=== PATIENT | male | born 1930 | race Caucasian/White ===

== ENCOUNTER 2017-05-01 04:45 | Inpatient (IN) ==
--- NOTE | 2017-04-30 08:52 | EKG Report ---
Test Performed on : 04/30/2017 08:26:39 AM Test Reason : pat Blood Pressure : / mmHG Vent. Rate : 040 BPM Atrial Rate : 040 BPM P-R Int : 202 ms QRS Dur : 108 ms QT Int : 488 ms P-R-T Axes : 039 -28 049 degrees QTc Int : 397 ms Marked sinus bradycardia. Abnormal ECG When compared with ECG of 11-JAN-2010 09:56, No significant change was found Confirmed by Wilder Bartlett DO ([id number]) on 05/03/2017 5:10:24 PM
[2017-04-30 09:44] LABS: HEMATOCRIT 38.5 % (42.0-52.0); HEMOGLOBIN 12.7 g/dL (14.0-18.0); MCH 29.3 PG (27-31); MCV 88.7 FL (81-99); MPV 9.9 FL (7.4-10.4); RBC 4.34 XMIL (4.7-6.1)
[2017-04-30 10:16] LABS: AGAP 10; BUN 14 mg/dL (8-22); CALCIUM 8.9 mg/dL (8.8-10.2); CHLORIDE 105 mmol/L (98-107); COSMO 283; POTASSIUM 4.3 mmol/L (3.5-5.1); SODIUM 142 mmol/L (136-145); TCO2 27 mmol/L (25-35)
[2017-05-01] MEDS ORDERED: PEPCID ONE (07:22)
[2017-05-01] MEDS ORDERED: INVANZ 1 GM/NS 1 GM/50 ML IVPB ONE (07:23)
[2017-05-01] MEDS ORDERED: LR 1,000 ML ONE (07:23)
[2017-05-01] MEDS ORDERED: FENTANYL ONE (07:56)
[2017-05-01] MEDS ORDERED: ENTEREG ONE (07:57)
[2017-05-01] MEDS ORDERED: AMIDATE ONE (07:57)
[2017-05-01] MEDS ORDERED: STERILE WATER INJ. ONE (09:31)
[2017-05-01] MEDS ORDERED: XYLOCAINE-MPF 2% ONE (09:31)
[2017-05-01] MEDS ORDERED: ZOFRAN ONE ×2 (09:31→11:42)
[2017-05-01] MEDS ORDERED: QUELICIN (DOSE) ONE (09:31)
[2017-05-01] MEDS ORDERED: OFIRMEV 1000 MG/ISOTONIC SOLN 1,000 MG/100 ML BOTTLE ONE (09:31)
[2017-05-01] MEDS ORDERED: NORCURON ONE (09:31)
[2017-05-01 10:22] LABS: URINE MICRO REVIEW NEEDED? NO; URINE SOURCE CATH
[2017-05-01 10:30] LABS: BILIRUBIN URINE NEGATIVE (NEGATIVE); BLOOD URINE SMALL (NEGATIVE); COLOR YELLOW; GLUCOSE URINE NEGATIVE (NEGATIVE); LEUKOCYTES URINE NEGATIVE (NEGATIVE); NITRITE URINE NEGATIVE (NEGATIVE); PROTEIN URINE NEGATIVE (NEGATIVE); SP GRAVITY URINE 1.016; TURBIDITY URINE CLEAR (CLEAR); UROBILINOGEN URINE NORMAL (NORMAL)
[2017-05-01 10:32] LABS: UR EPITHELIAL CELLS <10 /HPF (<10); URINE BACTERIA NEGATIVE /HPF; URINE RBC <10 /HPF (<10); URINE WBC <10 /HPF (<10)
--- NOTE | 2017-05-01 11:11 | OPERATIVE NOTE ---
PROCEDURE DATE: 05/01/2017 NAME OF THE PROCEDURE: Sigmoid colon resection. SURGEON: Russ Oconnell MD. MUFFLE OPERATOR: Ila Mar. PREOPERATIVE DIAGNOSIS: Mid sigmoid colon cancer. POSTOPERATIVE DIAGNOSIS: Mid sigmoid colon cancer. DESCRIPTION OF PROCEDURE: Satisfactory general endotracheal anesthesia was achieved. The patient was placed in Dharmesh stirrups. The abdomen was prepped and draped in a sterile fashion. An incision was made from just above the umbilicus down to the pubis. We carried our incision through the subcutaneous tissue through the midline fascia, entering the abdominal cavity to the extent of the skin incision. Brief exploration revealed a mass lesion in the mid sigmoid. It had been marked or tattooed. The sigmoid was somewhat redundant. We then incised the white line of Toldt on the left to free up the peritoneal attachments to the lateral pelvic wall. We then placed our Bookwalter retractor with the appropriate retracting arms and placed the patient in Trendelenburg. This kept the small bowel out of the way. After incising the peritoneum on both sides we chose a place in the proximal sigmoid, cleaned it off and then divided with the RORY blue cartridge 60 mm long. We then scored the peritoneum all the way down to the proximal rectum. We then used the LigaSure to divide the mesentery down to the sigmoid vessels. Here, we clamped and divided them with Eleanor clamps, suture ligated with 0 silk suture ligature. We then continued dissection of the mesentery down to our chosen distal point in the distal sigmoid or proximal rectum. We laid the specimen up on the pelvic sidewall anteriorly and this exposed the most distal sigmoid or proximal rectum posteriorly. We then used 3-0 silks in a Lembert fashion to approximate the proximal stapled off colon to the most distal segment. After placing the posterior layer of seromuscular stitches I then amputated the specimen. We also cut off the staple line proximally and had the open end of the rectum [id number] with the open end of the proximal sigmoid or distal descending colon. We then used a 3-0 Polysorb running locking stitch on the inner layer, changed it to a Evelio stitch anteriorly and then the finally 3-0 silks in a Lembert fashion anteriorly. This completed a 2 layered anastomosis. We changed gloves at this point and rid ourselves of the contaminated instruments. We irrigated out the pelvis. We then removed our retractors, proceeded to close the peritoneum with 2-0 chromic. We closed the fascia with the running #2 Prolene. We irrigated out the subcutaneous tissue then closed the skin with esther. A sterile dressing was applied. He tolerated it well. Sent to the recovery room in satisfactory condition. cc: MD Alfa Fuchs MD Alan Walker, MD
[2017-05-01] MEDS ORDERED: ROBINUL ONE (11:17)
[2017-05-01] MEDS ORDERED: D5 NS 1,000 ML ONE (11:43)
[2017-05-01] MEDS ORDERED: DEMEROL ONE (11:53)
[2017-05-01] MEDS ORDERED: BUPRENEX ONE (11:56)
[2017-05-01] MEDS ORDERED: BUPRENEX IV PRN (12:34)
[2017-05-01] MEDS: D5 LR 1,000 ML IV SCH (13:28)
[2017-05-01] MEDS: ZOFRAN IV PRN (13:34)
[2017-05-01] MEDS: OFIRMEV 1000 MG/ISOTONIC SOLN 1,000 MG/100 ML BOTTLE IV SCH ×2 (16:19→21:30)
[2017-05-01] MEDS ORDERED: BLISTEX MEDICATED BERRY LIP BALM TOP PRN (17:20)
[2017-05-01] MEDS: PERIDEX MT SCH (21:30)
[2017-05-01] MEDS: LOVENOX SUBQ SCH (21:30)
[2017-05-02] MEDS: D5 LR 1,000 ML IV SCH ×4 (00:59→15:45)
[2017-05-02] MEDS: OFIRMEV 1000 MG/ISOTONIC SOLN 1,000 MG/100 ML BOTTLE IV SCH ×4 (03:58→21:16)
[2017-05-02 06:29] LABS: HEMATOCRIT 34.9 % (42.0-52.0); HEMOGLOBIN 11.3 g/dL (14.0-18.0); MCH 28.8 PG (27-31); MCHC 32.4 g/dL (33-37); RBC 3.92 XMIL (4.7-6.1)
[2017-05-02 07:53] LABS: AGAP 7; BUN 15 mg/dL (8-22); CALCIUM 7.9 mg/dL (8.8-10.2); CHLORIDE 103 mmol/L (98-107); COSMO 278; POTASSIUM 4.4 mmol/L (3.5-5.1); SODIUM 138 mmol/L (136-145); TCO2 28 mmol/L (25-35)
[2017-05-02] MEDS: ENTEREG PO SCH ×2 (09:10→21:16)
[2017-05-02] MEDS: PRILOSEC PO SCH (09:10)
[2017-05-02] MEDS: PERIDEX MT SCH ×2 (09:10→21:16)
[2017-05-02] MEDS: UROXATRAL PO SCH (09:10)
[2017-05-02] MEDS: LOVENOX SUBQ SCH (21:16)
[2017-05-03] MEDS: ZOFRAN IV PRN ×3 (03:10→20:45)
[2017-05-03] MEDS: OFIRMEV 1000 MG/ISOTONIC SOLN 1,000 MG/100 ML BOTTLE IV SCH ×4 (03:10→20:45)
[2017-05-03] MEDS: D5 LR 1,000 ML IV SCH ×3 (04:50→11:28)
[2017-05-03] MEDS: PERIDEX MT SCH ×2 (09:21→20:46)
[2017-05-03] MEDS: ENTEREG PO SCH ×2 (09:22→20:45)
[2017-05-03] MEDS: UROXATRAL PO SCH (09:22)
[2017-05-03] MEDS: TENORMIN PO SCH ×2 (09:22→09:24)
[2017-05-03] MEDS: PRILOSEC PO SCH (09:22)
[2017-05-03] MEDS ORDERED: D5 LR 1,000 ML IV SCH (12:56)
[2017-05-03] MEDS: LOVENOX SUBQ SCH (20:45)
[2017-05-04] MEDS: OFIRMEV 1000 MG/ISOTONIC SOLN 1,000 MG/100 ML BOTTLE IV SCH ×6 (03:37→22:40)
[2017-05-04] MEDS: PERIDEX MT SCH ×2 (09:17→22:41)
[2017-05-04] MEDS: UROXATRAL PO SCH (09:17)
[2017-05-04] MEDS: PRILOSEC PO SCH (09:17)
[2017-05-04] MEDS: TENORMIN PO SCH (09:17)
[2017-05-04] MEDS: ENTEREG PO SCH ×2 (09:17→22:41)
[2017-05-04] MEDS ORDERED: ULTRAM PO PRN (09:41)
[2017-05-04] MEDS: LOVENOX SUBQ SCH (22:41)
[2017-05-05] MEDS: OFIRMEV 1000 MG/ISOTONIC SOLN 1,000 MG/100 ML BOTTLE IV SCH (04:38)
--- NOTE | 2017-05-05 11:25 | PROGRESS NOTE ---
DATE: 05/05/2017 SUBJECTIVE: He is doing well. No real pain. He has become more mobile. He is quite debilitated and he needs quite a lot of assistance ambulating, but he is able to make it to the bathroom. He is having flatus and tolerating a full liquid diet. OBJECTIVE: No fevers. No tachycardia. Blood pressure 145/79, O2 saturation 93% on room air. Abdomen is soft, appropriately tender. Incision is healing well. I do not see any lower extremity edema. Cardiovascular: Normal rate and rhythm. LABORATORY DATA: Labs reviewed and nothing new today. ASSESSMENT AND PLAN: An 87-year-old male status post sigmoid colectomy for cancer. He is doing well. He has had a return of bowel function. We will Hep-Lock his fluids today. Advance his diet to soft. Continue with physical therapy and make plans for further disposition. I think he will benefit from rehab. He is in assisted living and he has got some family, but I think he is having a hard time getting in and out of bed and rehab may insure that he does not have an adverse event at home. We will continue to follow along. cc: MD Russ Franco MD
[2017-05-05] MEDS: TENORMIN PO SCH (12:00)
[2017-05-05] MEDS: PERIDEX MT SCH ×2 (12:01→20:26)
[2017-05-05] MEDS: PRILOSEC PO SCH (12:01)
[2017-05-05] MEDS: UROXATRAL PO SCH (12:01)
[2017-05-05] MEDS: LOVENOX SUBQ SCH (20:26)
[2017-05-06] MEDS: PRILOSEC PO SCH (09:16)
[2017-05-06] MEDS: UROXATRAL PO SCH (09:16)
[2017-05-06] MEDS: TENORMIN PO SCH (09:16)
[2017-05-06] MEDS: PERIDEX MT SCH ×3 (09:16→21:11)
--- NOTE | 2017-05-06 14:06 | PROGRESS NOTE ---
DATE: 05/06/2017 SUBJECTIVE: Feels well. He is having bowel function, tolerating a diet, still quite weak but he is moving around better. He made pretty good strides yesterday. OBJECTIVE: Vital signs: No fevers. Pulse has been 50-60, blood pressure 160/80, oxygen saturation 97% on room air. General: He is alert. Incisions clean, dry and intact. Abdomen: Soft, appropriately tender. Nondistended. ASSESSMENT/PLAN: An 87-year-old male status post sigmoid colectomy. He is doing overall well surgically, is quite debilitated and weak. I think that is his main issue today. I normalized him today to get a grasp on what is going to require going home and will see, he may ultimately need rehab or at least home physical therapy but will make the decision after his progress today, will plan for disposition tomorrow. cc: MD Russ Franco MD
[2017-05-06] MEDS: LOVENOX SUBQ SCH (21:10)
[2017-05-07 07:21] VITALS: BP 144/76
--- NOTE | 2017-05-17 07:29 | DISCHARGE SUMMARY ---
ADMISSION DATE: 05/01/2017 DISCHARGE DATE: 05/07/2017 PRIMARY DISCHARGE DIAGNOSIS: Adenocarcinoma of the sigmoid colon. PRIMARY PROCEDURE: Sigmoid colectomy. HISTORY: This is an 87-year-old sent to me with a recently discovered cancer in the mid sigmoid by Dr. Robbins on colonoscopy. He was prepped as an outpatient, admitted on 05/01/2017, and underwent the sigmoid colectomy on 05/01/2017. Postoperatively, he did generally well. We decreased his IV rate to 70 on the first postoperative day. We removed his Sosa on the second postoperative day, and started him on clear liquids. We advanced his diet subsequent to that. By 05/07/2017, postop day 6, he was tolerating solid food, his bowels had moved, his wound was fine, and it was felt he could be discharged home. He will return to the office in 1 week. His pathology showed no positive nodes. cc: MD Alfa Fuchs MD
== END 2017-05-07 09:02 | disposition home or self-care (01) ==
LOC: SURHOLD 04:45 → 4N 11:39
PROVIDERS: ADMIT Surgery; ATTEND Surgery

== ENCOUNTER 2018-09-23 09:09 | Inpatient (IN) ==
[2018-09-23] MEDS ORDERED: ZOFRAN IV PRN (10:55)
[2018-09-23] MEDS ORDERED: NS 1,000 ML IV SCH (11:00)
--- NOTE | 2018-09-23 12:00 | HISTORY AND PHYSICAL ---
PRIMARY CARE PHYSICIAN: Kwame Oconnell MD CHIEF COMPLAINT: Sent from primary care physician's office today after being seen for generalized weakness and failure to thrive. HISTORY OF PRESENTING ILLNESS: This is an 88-year-old male who presents to [facility] as a direct admit from his primary care physician's office after he was seen there this morning. He states that he has not been feeling well for the past 2 weeks, has had a 10- to 15-pound weight loss with no appetite in the past 2 weeks. He was seen in the ER on 09/20/2018 after he was at his eye appointment and had a low blood pressure with systolic in the 80s. When he arrived to the emergency room there, his blood pressure systolic was 110, and they diagnosed him with a bronchitis, and he was discharged home on an antibiotic. He states that prior to these last 2 weeks, he was walking 1/2 mile a day independently without any difficulty, eating well, but since he has been feeling bad for the past 2 weeks, he has had shortness of breath with minimal exertion, and so he is being admitted for further evaluation and treatment. PAST MEDICAL HISTORY: Colon cancer, bladder cancer, hypertension, and a thyroid nodule followed by Dr. Russ Oconnell, outpatient. PAST SURGICAL HISTORY: Sigmoid colectomy, cataracts bilaterally, a deviated septum repair, and an appendectomy. FAMILY HISTORY: Reviewed and noncontributory. SOCIAL HISTORY: Currently lives at the [facility]. She was a 3-nqpz-u-day smoker since the age of 9, but quit in 1998, and denies any alcohol or illicit drug use. ALLERGIES: He has no known drug allergies. HOME MEDICATIONS: He takes Uroxatral 10 mg p.o. daily; Augmentin 875/125 b.i.d. will be held; atenolol 50 mg p.o. every a.m., Singulair 10 mg p.o. daily, and omeprazole 20 mg p.o. daily. He states that he took his medications this morning prior to arriving so we will begin all of those in the morning. LABORATORY DATA: We are obtaining blood cultures x2, CBC, CK profile, troponin, proBNP, and a CMP and a 2-view chest x-ray now, and we will review those after they are resulted. REVIEW OF SYSTEMS: He denied any fever, chills, blurred vision, dizziness. He has had fatigue, decreased energy, decreased appetite, shortness of breath with minimal exertion, weight loss. Denied any abdominal pain, constipation, diarrhea, burning or hurting with urination. PHYSICAL EXAMINATION: VITAL SIGNS: On arrival, he had a temperature of 97.8 degrees, pulse 61, respirations 16, blood pressure was 97/57, saturating 100% on room air. GENERAL: This is an 88-year-old male who is lying in the bed, answers questions appropriately. Appears weak and pale in color. HEENT: Normocephalic, atraumatic. Normal ENT inspection. Oropharynx and nares are clear. Eyes: Pupils are equal, round, reactive to light and accommodation. Extraocular movements are intact. NECK: Normal inspection, normal range of motion. LUNGS: Clear to auscultation bilaterally with equal lung expansion and chest wall movement. HEART: Regular rate and rhythm. No murmurs, rubs, or gallops. ABDOMEN: Soft, nontender, nondistended. Bowel sounds are present x4 quadrants. MUSCULOSKELETAL: He has 4/5 strength x4 extremities. NEUROLOGICAL: The cranial nerves 2 through 12 appear grossly intact. ASSESSMENT: 1. Generalized weakness. 2. Adult failure to thrive. 3. Shortness of breath. 4. Hypotension. PLAN: He is being admitted to the medical unit, placed on telemetry and regular diet. Again, we are obtaining labs of a blood culture x2, CBC, CK with troponin, CMP, proBNP, 2 view chest x-ray, and an EKG. We will restart his home medications as previously identified. Again, he has had his dosages of his medications this morning, so those will begin in the morning. We will place him on normal saline at 50 mL an hour until we get test results back, and then we will reevaluate for further orders at that time after being seen by attending and reviewing the lab and test results. Dictated by VICKY Whitney for Yo Mcclain MD cc: VICKY Whitney MD Alan Walker, MD
[2018-09-23 12:21] LABS: BASO# 0.02 X1000 (0.0-0.2); BASO% 0.1 % (0.0-0.8); EOS# 0.09 X1000 (0.0-0.7); EOS% 0.6 % (0.0-10.0); HEMATOCRIT 32.2 % (42.0-52.0); HEMOGLOBIN 10.4 g/dL (14.0-18.0); IMM GRAN# 0.18 X1000 (0.0-0.04); IMM GRAN% 1.2 % (0.0-0.5); LYMPH# 1.14 X1000 (1.2-3.4); LYMPH% 7.4 % (20.5-51.1); MCH 27.6 PG (27-31); MCHC 32.3 g/dL (33-37); MCV 85.4 FL (81-99); MONO# 1.02 X1000 (0.11-0.59); MONO% 6.6 % (1.7-9.3); MPV 8.7 FL (7.4-10.4); NEUT# 12.99 X1000 (1.4-6.5); NEUT% 84.1 % (42.2-75.2); PLT 426 X1000 (130-400); RBC 3.77 XMIL (4.7-6.1); RDW 13.5 % (11.5-14.5); WBC 15.44 X1000 (4.8-10.8)
--- NOTE | 2018-09-23 12:38 | Diag Imaging Result Doc PS360 ---
EXAM: CHEST-2 VIEWS HISTORY: cough TECHNIQUE: Chest two views COMPARISON: 09/18/2017 FINDINGS: The lungs are well expanded. The heart is not enlarged. The vessels are not distended. There are no infiltrates. No pleural effusions. IMPRESSION: No pneumonia. Electronically signed by Prosper Kimball 09/23/2018 12:35 PM
[2018-09-23 13:00] LABS: AGAP 11; ALBUMIN 2.4 g/dL (3.5-5.0); ALKALINE PHOSPHATASE 70 U/L (32-122); BUN 24 mg/dL (8-22); CALCIUM 8.3 mg/dL (8.8-10.2); CHLORIDE 99 mmol/L (98-107); CK PROFILE 36 U/L (24-204); COSMO 269; CREATININE 1.1 mg/dL (0.7-1.2); ESTIMATED GFR > 60; GLUCOSE 110 mg/dL (70-104); GOT 16 U/L (10-34); GPT 10 U/L (10-44); POTASSIUM 4.6 mmol/L (3.5-5.1); SODIUM 132 mmol/L (136-145); TCO2 22 mmol/L (25-35); TOTAL PROTEIN 5.9 g/dL (6.3-8.3)
[2018-09-23] MEDS ORDERED: ZITHROMAX 500 MG/NS 500 MG/250 ML IVPB IV SCH (16:00)
[2018-09-23] MEDS: NS 1,000 ML IV SCH ×2 (16:18→23:27)
[2018-09-23] MEDS: ROCEPHIN 1 GM in NS 50 ML IV SCH (16:18)
--- NOTE | 2018-09-23 17:03 | EKG Report ---
Test Performed on : 09/23/2018 4:13:25 PM Test Reason : generalized weakness Blood Pressure : / mmHG Vent. Rate : 057 BPM Atrial Rate : 057 BPM P-R Int : 210 ms QRS Dur : 112 ms QT Int : 476 ms P-R-T Axes : 061 -13 039 degrees QTc Int : 463 ms Sinus bradycardia. with 1st degree AV block. Otherwise normal ECG When compared with ECG of 20-SEP-2018 15:59, (Unconfirmed) No significant change was found Unconfirmed Result
[2018-09-23 20:31] LABS: URINE SOURCE CLEAN CATCH
[2018-09-23 20:34] LABS: BILIRUBIN URINE NEGATIVE (NEGATIVE); BLOOD URINE 4+ (NEGATIVE); CLARITY SLIGHTLY CLOUDY (CLEAR); COLOR YELLOW; GLUCOSE URINE NEGATIVE (NEGATIVE); KETONE URINE TRACE mg/dL (NEGATIVE); PH URINE 6.5; PROTEIN URINE TRACE mg/dL (NEGATIVE)
[2018-09-23 20:35] LABS: LEUKOCYTES URINE TRACE (NEGATIVE); NITRITE URINE NEGATIVE (NEGATIVE); URINE BACTERIA 1+ /HFP; URINE CAST NONE SEEN /LPF; URINE CRYSTAL NONE SEEN /HPF; URINE EPITHELIAL CELLS <10 /HPF (<10); URINE WBC <10 /HPF (<10); URINE YEAST NONE SEEN /HPF; UROBILINOGEN URINE NORMAL
--- NOTE | 2018-09-24 03:46 | HISTORY AND PHYSICAL ---
ADDENDUM: This is a pleasant gentleman who has previously been very functional and now is weak, cannot really do much for himself. He has been up and about previously and now cannot ambulate across the room without getting significantly short of breath. He has been diagnosed with bronchitis and been placed on amoxicillin but really no major improvement today. He was admitted per Dr. Kwame Oconnell directly from his clinic for failure to thrive, kind of weakness. On exam he is pale but really nonfocal exam. Lungs clear, heart faint S1, S2 but he does have a sinus bradycardia with a first-degree AV block so that may be related to his atenolol in the setting of the other issue which is dehydration so we are going to work on these measures and see how he does. Continue hydration and monitor closely. PT evaluation to evaluate for autoimmune issues. cc: Kwame Oconnell MD
[2018-09-24] MEDS: PRILOSEC PO SCH (06:52)
[2018-09-24 07:14] LABS: BASO# 0.01 X1000 (0.0-0.2); BASO% 0.1 % (0.0-0.8); EOS# 0.17 X1000 (0.0-0.7); EOS% 1.2 % (0.0-10.0); HEMOGLOBIN 10.6 g/dL (14.0-18.0); IMM GRAN# 0.11 X1000 (0.0-0.04); IMM GRAN% 0.8 % (0.0-0.5); LYMPH# 1.32 X1000 (1.2-3.4); LYMPH% 9.2 % (20.5-51.1); MCH 27.5 PG (27-31); MCHC 32.1 g/dL (33-37); MCV 85.7 FL (81-99); MONO# 0.96 X1000 (0.11-0.59); MONO% 6.7 % (1.7-9.3); MPV 8.7 FL (7.4-10.4); NEUT# 11.74 X1000 (1.4-6.5); PLT 400 X1000 (130-400); RBC 3.85 XMIL (4.7-6.1); RDW 13.5 % (11.5-14.5); RETIC-HE 28.3 PG (28.2-36.6); WBC 14.31 X1000 (4.8-10.8)
[2018-09-24 07:36] LABS: AGAP 11; BUN 22 mg/dL (8-22); CALCIUM 7.6 mg/dL (8.8-10.2); CHLORIDE 105 mmol/L (98-107); COSMO 276; CREATININE 1.1 mg/dL (0.7-1.2); ESTIMATED GFR > 60; GLUCOSE 110 mg/dL (70-104); IRON SATURATION 9 %; SODIUM 136 mmol/L (136-145); TCO2 21 mmol/L (25-35); TIBC 141 ug/dL; TOTAL IRON 13 ug/dL (53-167); UNBOUND IRON 128 ug/dL (112-346)
[2018-09-24] MEDS: NS 1,000 ML IV SCH ×2 (07:41→16:47)
[2018-09-24] MEDS ORDERED: UROXATRAL PO SCH (09:00)
[2018-09-24] MEDS ORDERED: TENORMIN PO SCH (09:00)
[2018-09-24] MEDS: SINGULAIR PO SCH (09:15)
[2018-09-24 11:34] LABS: C REACTIVE PROT QUANT 133.74 mg/L (0.00-5.00)
[2018-09-24 11:43] LABS: FERRITIN 363 ng/mL (30-400)
[2018-09-24 12:31] LABS: OCCULT BLOOD 1 NEGATIVE (NEGATIVE)
[2018-09-24] MEDS ORDERED: DIPRIVAN 1% ONE (13:11)
[2018-09-24] MEDS: ROCEPHIN 1 GM in NS 50 ML IV SCH (16:49)
[2018-09-24] MEDS: TYLENOL PO PRN (16:57)
--- NOTE | 2018-09-24 19:35 | Diag Imaging Result Doc PS360 ---
EXAM: CT THORAX W/CONTRAST HISTORY: pneumonia TECHNIQUE: CT chest with contrast COMPARISON: 09/20/2018 FINDINGS: Trace pleural fluid. Heart is borderline mildly prominent. No aortic aneurysm or dissection. No enlarged lymph nodes. No consolidation. There is basilar atelectasis. No bronchiectasis. Mild bronchial wall thickening in the lower lobes. IMPRESSION: Very little change since the prior exam although there is trace pleural fluid on the current study. This exam was performed using automated exposure control, adjustment of mA or kV according to patient size, and/or use of iterative reconstruction technique. Electronically signed by Prosper Kimball 09/24/2018 7:33 PM
[2018-09-24] MEDS: FOLIC ACID 1 MG in NS 50 ML IV SCH (20:13)
--- NOTE | 2018-09-24 20:28 | PROGRESS NOTE ---
DATE: 09/24/2018 SUBJECTIVE: He feels a little bit better today, but he looks like he is working a little bit harder to breathe, as well. He has had fevers which I do not have a great explanation for. OBJECTIVE: Vital Signs: Blood pressure is 132/79, heart rate 76, respiratory rate 18, temp 100.4. Cardiovascular: Regular rate and rhythm. Pulmonary: Bilateral breath sounds. Clear to auscultation. Gastrointestinal: Soft, nontender, nondistended. Bowel sounds are positive. I do not hear any wheezing. I do not hear any rales. LABORATORY DATA: White count is 14, hemoglobin and hematocrit is 10 and 33, platelets of 400,000. His sedimentation rate is 86, CRP of 133. Rest of his numbers are okay. Folate level is 3. Iron level is 13, with iron sat of 9, ferritin was normal. PROBLEM LIST: 1. Fever of unknown origin. At this point we will pursue chest CT first. If that is unrevealing, then we will get an abdominal and pelvic CT. Family has expressed concern about possible recurrent cancer. He has had a history of bladder and colon cancer. We will go ahead and check a CEA level. His sedimentation rate and CRP are both elevated in a pattern that is more consistent with possible immunological phenomena. We will check an MARILOU and ANCA and follow. He has a chronic rash, but this has been present previously. It is not a new diagnosis. I do not know if this is a Langerhans histiocytosis. Apparently his daughter, though, has similar process. 2. Anemia. It looks like he is both iron and folate deficient. Waiting for his temperature to get better before we start iron infusions, which will probably be in the a.m. We will supplement folate. 3. Weakness, may be multifactorial, infection, anemia. We will continue PT and we are looking at long-term. We are looking at possible rehab if he is not improving from a physical side. cc: Yo Mcclain MD
[2018-09-24 21:01] LABS: INFLUENZA A NEGATIVE (NEGATIVE); INFLUENZA B NEGATIVE (NEGATIVE)
[2018-09-25] MEDS: NS 1,000 ML IV SCH (01:34)
[2018-09-25] MEDS: PRILOSEC PO SCH (06:24)
[2018-09-25 07:30] LABS: BASO# 0.02 X1000 (0.0-0.2); BASO% 0.2 % (0.0-0.8); EOS# 0.29 X1000 (0.0-0.7); EOS% 2.3 % (0.0-10.0); HEMATOCRIT 32.4 % (42.0-52.0); HEMOGLOBIN 10.3 g/dL (14.0-18.0); IMM GRAN# 0.14 X1000 (0.0-0.04); IMM GRAN% 1.1 % (0.0-0.5); LYMPH# 1.03 X1000 (1.2-3.4); LYMPH% 8.2 % (20.5-51.1); MCH 27.3 PG (27-31); MCHC 31.8 g/dL (33-37); MCV 85.9 FL (81-99); MONO# 0.89 X1000 (0.11-0.59); MONO% 7.1 % (1.7-9.3); MPV 8.6 FL (7.4-10.4); NEUT# 10.16 X1000 (1.4-6.5); NEUT% 81.1 % (42.2-75.2); PLT 365 X1000 (130-400); RBC 3.77 XMIL (4.7-6.1); RDW 13.6 % (11.5-14.5); WBC 12.53 X1000 (4.8-10.8)
[2018-09-25 07:42] LABS: AGAP 10; BUN 18 mg/dL (8-22); CALCIUM 7.3 mg/dL (8.8-10.2); CHLORIDE 106 mmol/L (98-107); COSMO 274; ESTIMATED GFR > 60; GLUCOSE 107 mg/dL (70-104); SODIUM 136 mmol/L (136-145); TCO2 20 mmol/L (25-35)
[2018-09-25] MEDS ORDERED: VENOFER 200 MG in NS 150 ML IV ONE (09:00)
[2018-09-25] MEDS: SINGULAIR PO SCH (09:47)
--- NOTE | 2018-09-25 13:56 | Diag Imaging Result Doc PS360 ---
EXAM: CT ABD/PELVIS W/PO AND IV CON 09/25/2018 HISTORY: weight loss, fever, weakness, hx colon/bladder TECHNIQUE: This exam was performed using automated exposure control, adjustment of mA or kV according to patient size, and/or use of iterative reconstruction technique. COMMENT: The current examination is compared with the previous study of 04/24/2017.There are bilateral pleural effusions which were not previously present. There is some atelectasis in both lung bases. The spleen adrenal glands and pancreas are stable in appearance. There is a fairly large amount of stool in the colon. The liver is stable in appearance. There is a cyst in the left hepatic lobe. There are multiple cortical cysts in both kidneys. There is no evidence of small bowel dilatation. There is no evidence of abdominal aortic aneurysm or significant adenopathy. Pelvis: The appendix is not enlarged. There is no evidence of free fluid. There is a fat-containing right inguinal hernia. There are some spondylotic change in the lumbar spine. No evidence of acute bony disease is present.. IMPRESSION: Constipation. Bilateral pleural effusions and basilar atelectasis. Electronically signed by Yonatan Cai 09/25/2018 1:54 PM
[2018-09-25] MEDS: ROCEPHIN 1 GM in NS 50 ML IV SCH (15:23)
[2018-09-25] MEDS ORDERED: DUONEB (A & A) INH PRN (18:12)
[2018-09-25] MEDS: DUONEB (A & A) INH SCH ×2 (18:22→21:05)
[2018-09-25] MEDS: ZITHROMAX 500 MG/NS 500 MG/250 ML IVPB IV SCH (18:37)
[2018-09-25] MEDS: MIRALAX PO SCH (18:37)
[2018-09-25] MEDS: FOLIC ACID 1 MG in NS 50 ML IV SCH (20:21)
[2018-09-25] MEDS: LACTULOSE PO SCH (20:21)
[2018-09-26] MEDS: DUONEB (A & A) INH SCH ×4 (03:16→22:48)
--- NOTE | 2018-09-26 05:19 | PROGRESS NOTE ---
DATE: 09/25/2018 OBJECTIVE: Vital Signs: Blood pressure is 108/67, heart rate 76, respiratory rate 18, temperature 98.1 degrees. He is 94% on room air. Cardiovascular: Regular rate and rhythm. Pulmonary: Diminished at the bases. GI: Soft, nontender, nondistended. Bowel sounds were positive. Laboratory Data: White count is 12, hemoglobin and hematocrit 10 and 32, platelets 365,000. Basic was normal. PROBLEM LIST: 1. Bilateral pneumonia. I think that is what is causing his fever. We will give him Rocephin and azithromycin. We started Rocephin a couple days ago and he has defervesced, and white count has come down. We will start breathing treatments and pulmonary toilet. 2. Anemia, which is stable. Combination of chronic inflammation and iron deficiency, well most likely iron deficiency and folate deficiency. 3. Constipation. We will continue to treat. 4. He does seem a bit weak so we will continue to monitor closely. He will likely need inpatient rehab. We will work on trying to get him up and about. 5. Protein calorie malnutrition. We will continue nutritional supplementation and follow. cc: Yo Mcclain MD
[2018-09-26] MEDS: PRILOSEC PO SCH (06:16)
[2018-09-26 08:25] LABS: BASO# 0.02 X1000 (0.0-0.2); BASO% 0.2 % (0.0-0.8); EOS# 0.29 X1000 (0.0-0.7); EOS% 2.4 % (0.0-10.0); HEMOGLOBIN 10.1 g/dL (14.0-18.0); IMM GRAN# 0.18 X1000 (0.0-0.04); IMM GRAN% 1.5 % (0.0-0.5); LYMPH# 1.15 X1000 (1.2-3.4); LYMPH% 9.6 % (20.5-51.1); MCHC 31.6 g/dL (33-37); MCV 85.6 FL (81-99); MONO# 0.89 X1000 (0.11-0.59); MONO% 7.4 % (1.7-9.3); MPV 8.7 FL (7.4-10.4); NEUT# 9.51 X1000 (1.4-6.5); NEUT% 78.9 % (42.2-75.2); PLT 354 X1000 (130-400); RBC 3.74 XMIL (4.7-6.1); RDW 13.7 % (11.5-14.5); WBC 12.04 X1000 (4.8-10.8)
[2018-09-26 08:29] LABS: AGAP 11; BUN 17 mg/dL (8-22); CALCIUM 7.3 mg/dL (8.8-10.2); CHLORIDE 107 mmol/L (98-107); COSMO 280; ESTIMATED GFR > 60; GLUCOSE 107 mg/dL (70-104); POTASSIUM 4.2 mmol/L (3.5-5.1); SODIUM 139 mmol/L (136-145); TCO2 21 mmol/L (25-35)
[2018-09-26] MEDS: SINGULAIR PO SCH (10:58)
[2018-09-26] MEDS: LACTULOSE PO SCH ×2 (11:00→22:39)
[2018-09-26] MEDS: MIRALAX PO SCH (11:00)
--- NOTE | 2018-09-26 14:23 | PROGRESS NOTE ---
DATE: 09/26/2018 SUBJECTIVE: No acute events overnight. This patient is still feeling tired and he is short of breath. Vital signs are stable even without oxygen. I checked his CT of the chest and he does have some fluid and also possible infiltrate at the bases. These can be related to pneumonia and he has been placed on antibiotics. Also, I will check an echocardiogram to see the cause, if this fluids is related to any heart condition. OBJECTIVE: Vital Signs: Temperature 97.9 degrees, pulse 92, respiratory rate 24, blood pressure 121/61, oxygen saturation 98% on room air. HEENT: Head normocephalic. No trauma. PERRLA. Neck: Supple. I do not see JVD. Central trachea. Chest: Decreased breath sounds at the bases with some rales at the bases and some crepitus bilaterally. Abdomen: Soft, nontender, nondistended. No hepatosplenomegaly. Extremities: Trace pedal edema. No clubbing. No cyanosis. Skin: He has multiple lesions which are chronic, on basically the whole body, round lesions and desquamative, some of them pinkish-reddish. No itchiness. No bleeding. Neurological: The patient is alert and oriented x3. No focal deficits. LABORATORY DATA: WBC 12, hemoglobin 10.1, hematocrit 32, platelets 354,000. Sodium 139, potassium 4.2, chloride 109, bicarbonate 21, BUN 17, creatinine 1, glucose 107, calcium 7.3. ASSESSMENT AND PLAN: 1. Likely bilateral lower lobe pneumonia. He has been placed already on Rocephin and azithromycin. White blood cell count is coming down. Continue breathing treatment, pulmonary toilet, and oxygen as needed. 2. Mild bilateral pleural effusion. I will do an echocardiogram to rule out any heart condition. He used to be a heavy smoker, but he quit smoking, I believe, in 1998. 3. Generalized weakness. Continue physical therapy and occupational therapy. 4. Adult failure to thrive. Aware. Continue with physical therapy. Continue with his diet and hopefully he will be discharged to a rehabilitation center probably at the beginning of the next week. 5. Shortness of breath as per number 1. 6. Hypotension. Actually, his blood pressure has been stable. He has been on atenolol at home, which has been held. Heart rate and vital signs currently are stable. 7. Constipation. He had a bowel movement recently. Continue with lactulose twice a day and we will titrate that to 1 or 2 bowel movements a day. 8. Anemia, which is stable, a combination probably of chronic inflammation and iron deficiency. We are replacing folate and iron. cc: Edmundo Bernstein MD
[2018-09-26] MEDS: ROCEPHIN 1 GM in NS 50 ML IV SCH (17:31)
[2018-09-26] MEDS: ZITHROMAX 500 MG/NS 500 MG/250 ML IVPB IV SCH (18:12)
[2018-09-26] MEDS: FOLIC ACID 1 MG in NS 50 ML IV SCH (19:35)
[2018-09-27] MEDS: DUONEB (A & A) INH SCH ×4 (03:17→22:39)
[2018-09-27] MEDS: PRILOSEC PO SCH (06:27)
[2018-09-27 07:59] LABS: BASO# 0.01 X1000 (0.0-0.2); BASO% 0.1 % (0.0-0.8); EOS# 0.12 X1000 (0.0-0.7); EOS% 0.9 % (0.0-10.0); HEMOGLOBIN 10.1 g/dL (14.0-18.0); IMM GRAN# 0.16 X1000 (0.0-0.04); IMM GRAN% 1.2 % (0.0-0.5); LYMPH# 1.28 X1000 (1.2-3.4); LYMPH% 9.5 % (20.5-51.1); MCHC 31.6 g/dL (33-37); MCV 85.6 FL (81-99); MONO# 0.94 X1000 (0.11-0.59); MPV 8.9 FL (7.4-10.4); NEUT# 10.91 X1000 (1.4-6.5); NEUT% 81.3 % (42.2-75.2); PLT 337 X1000 (130-400); RBC 3.74 XMIL (4.7-6.1); RDW 13.9 % (11.5-14.5); WBC 13.42 X1000 (4.8-10.8)
[2018-09-27 08:25] LABS: CALCIUM 7.8 mg/dL (8.8-10.2); CREATININE 1.2 mg/dL (0.7-1.2); POTASSIUM 4.2 mmol/L (3.5-5.1)
[2018-09-27] MEDS: MIRALAX PO SCH (08:26)
[2018-09-27] MEDS: LACTULOSE PO SCH ×2 (08:26→22:01)
[2018-09-27] MEDS: SINGULAIR PO SCH (08:26)
[2018-09-27] MEDS ORDERED: LASIX IV ONE (10:24)
--- NOTE | 2018-09-27 11:19 | PROGRESS NOTE ---
DATE: 09/27/2018 SUBJECTIVE: No acute events overnight. This patient is still feeling tired and he is a little bit short of breath as well. CT scan showed some fluids at the bases and possible some atelectasis, but I believe he has some infiltrates as well. He has been treated with antibiotics. Today, I will give him a low dose of Lasix to try to remove as much as we can fluid from his lungs. He is an 88-year-old patient. I discussed with him his resuscitation status and he decided to be DNR level 1. He has been eating a little bit better. He has been having bowel movements. We are going to continue working with physical therapy and occupational therapy. OBJECTIVE: Vital Signs: Temperature 98.9, pulse 82, respiratory rate 28, blood pressure 103/67, oxygen saturation 95% on room air. HEENT: Head normocephalic. No trauma. PERRLA. Neck: Supple. I do not see JVD. Central trachea. Chest: Decreased breath sounds at the bases with some rales at the bases and crepitus bilaterally. Abdomen: Soft, nontender, nondistended. No hepatosplenomegaly. Extremities: Trace pedal edema. No clubbing. No cyanosis. Skin: He has multiple round lesions, basically upper and lower extremities, and his back and whole body essentially. Round lesion and desquamative with some of them pinkish, reddish areas. No dizziness and they are chronic. Neurological: Alert and oriented x3. No focal deficits. LABORATORY: WBC 13.4, hemoglobin 10.1, hematocrit 32.0, platelets 337. Sodium 137, potassium 4.2, chloride 106, bicarbonate 21, BUN 19, creatinine 1.2, glucose 16, calcium 7.8. ASSESSMENT AND PLAN: 1. Possible bilateral lower lobe pneumonia and pleural effusion. I will continue with Rocephin and azithromycin, breathing treatment, pulmonary toilet, oxygen as needed. I will give him a low dose of Lasix today to see how he does. I already asked for an echocardiogram but the report is still pending. He used to be a heavy smoker, but apparently he quit smoking in 1998 or so. 2. Generalized weakness. Continue physical therapy and occupational therapy. 3. Adult failure to thrive, aware. Continue physical therapy. Continue with his diet. Hopefully, he will be discharged to a rehab center at the beginning of the next week. 4. Shortness of breath. As per #1. 5. Hypotension. Actually his blood pressure has been more stable. He has been on atenolol at home which has been held. 6. Constipation, resolved. Continue with the same management. 7. Anemia, stable. Likely a combination of chronic inflammation and iron deficiency. We are replacing the folate and iron. cc: Edmundo Bernstein MD
[2018-09-27] MEDS: THERA M PLUS PO SCH (12:28)
[2018-09-27] MEDS: ROCEPHIN 1 GM in NS 50 ML IV SCH (18:04)
[2018-09-27] MEDS: ZITHROMAX PO SCH (18:04)
[2018-09-27] MEDS: TYLENOL PO PRN (22:00)
[2018-09-27] MEDS: FOLIC ACID 1 MG in NS 50 ML IV SCH (22:00)
[2018-09-27] MEDS: D5 1/2 NS 1,000 ML IV SCH (22:01)
[2018-09-27 23:54] LABS: INR 1.14; PROTIME 15.2 Seconds (11.0-16.0)
[2018-09-28] MEDS: DUONEB (A & A) INH SCH ×6 (04:10→23:12)
[2018-09-28 05:12] LABS: BASO# 0.03 X1000 (0.0-0.2); BASO% 0.2 % (0.0-0.8); EOS# 0.34 X1000 (0.0-0.7); EOS% 2.5 % (0.0-10.0); HEMATOCRIT 29.9 % (42.0-52.0); HEMOGLOBIN 9.6 g/dL (14.0-18.0); IMM GRAN# 0.21 X1000 (0.0-0.04); IMM GRAN% 1.5 % (0.0-0.5); LYMPH# 1.58 X1000 (1.2-3.4); LYMPH% 11.6 % (20.5-51.1); MCH 27.6 PG (27-31); MCHC 32.1 g/dL (33-37); MCV 85.9 FL (81-99); MONO# 0.94 X1000 (0.11-0.59); MONO% 6.9 % (1.7-9.3); MPV 8.5 FL (7.4-10.4); NEUT# 10.55 X1000 (1.4-6.5); NEUT% 77.3 % (42.2-75.2); PLT 288 X1000 (130-400); RBC 3.48 XMIL (4.7-6.1); RDW 13.8 % (11.5-14.5); WBC 13.65 X1000 (4.8-10.8)
[2018-09-28 05:33] LABS: ALBUMIN 1.9 g/dL (3.5-5.0); CALCIUM 7.4 mg/dL (8.8-10.2); CREATININE 1.3 mg/dL (0.7-1.2); POTASSIUM 4.3 mmol/L (3.5-5.1); TOTAL BILIRUBIN 0.2 mg/dL (0.20-1.00); TOTAL PROTEIN 4.4 g/dL (6.3-8.3)
[2018-09-28 05:37] LABS: BE 0.6 mmoll (-3.0-3.0); BLOOD TYPE ARTERIAL; HCO3-(ACT) 25.4 mmoll (20.0-26.0); METHB 1.7 % (0.0-1.5); O2(CT) 13.3 mL/dL (15.0-23.0); O2HB 94.1 % (95.0-99.0); PCO2(98.6) 33 mmHg (35-45); PO2(98.6) 73 mmHg (60-100); SAMPLE BLOOD; SAO2 98.1 % (95.0-100.0); pH(98.6) 7.47 (7.35-7.45)
[2018-09-28 05:38] LABS: ALLEN TEST YES; MODALITY ROOM AIR
[2018-09-28] MEDS: PRILOSEC PO SCH (06:51)
--- NOTE | 2018-09-28 08:02 | Diag Imaging Result Doc PS360 ---
EXAM: CHEST-PORTABLE INDICATION: dyspnea TECHNIQUE: One view COMPARISON: 09/23/2018 FINDINGS: Inspiration is slightly suboptimal. This causing mild central vascular crowding. No well-defined consolidation can be identified, otherwise. There is no discrete pleural fluid collection or pneumothorax. The cardiomediastinal silhouette and central vasculature are grossly unremarkable. IMPRESSION: Slightly lower lung volumes but essentially stable, otherwise. Electronically signed by Andrey Ventura 09/28/2018 7:59 AM
[2018-09-28] MEDS: THERA M PLUS PO SCH (11:02)
[2018-09-28] MEDS: SINGULAIR PO SCH (11:02)
[2018-09-28] MEDS: LACTULOSE PO SCH ×2 (11:02→23:14)
[2018-09-28] MEDS: MIRALAX PO SCH (11:02)
[2018-09-28] MEDS ORDERED: ALBUMIN 25% IV ONE ×2 (13:33→23:17)
--- NOTE | 2018-09-28 15:33 | PROGRESS NOTE ---
DATE: 09/28/2018 SUBJECTIVE: No acute events overnight. This patient is still feeling tired. X-ray did not show any new abnormalities. We will continue with the same management. The albumin is low at 1.9, and I will give him some albumin through his vein. He is eating as much as he can, but he is still weak, and he seems to be in a little bit of respiratory distress even though he is not having a decrease in his oxygen saturation. His right upper extremity is a little bit swollen. He used to have an IV line there for a little bleed. Family is concerned about that. I will get an ultrasound to rule out DVT. OBJECTIVE: Vital Signs: Temperature 100.2, pulse 89, respiratory rate 20, blood pressure 113/49, oxygen saturation 100% on room air. HEENT: Head normocephalic. No trauma. PERRLA. Neck supple. I do not see JVD. Central trachea. Chest: Decreased breath sounds mostly at the bases with some rales and crepitus at the bases. Abdomen is soft. Nontender, nondistended, no hepatosplenomegaly. Extremities: Trace pedal edema. His right arm looks a little bit edematous, but compared with the left upper extremity it is not that much. No pain. Neurological: Alert and oriented x3. He is hard of hearing. No focal deficits. LABORATORIES: WBC 13.6, hemoglobin 9.6, hematocrit 29.9, platelets 288,000. Sodium 137, potassium 4.3, chloride 104 bicarbonate 21, BUN 24, creatinine 1.3, glucose 124, calcium 7.4. ASSESSMENT AND PLAN: 1. Most likely, bilateral lower lobe pneumonia and some pleural effusion. I will continue with the Rocephin and azithromycin, breathing treatment, pulmonary toilet and oxygen as needed. He received a low dose of Lasix yesterday, and the kidney function went up a little bit, so I am not going to giving more Lasix. He does have some hypoalbuminemia, and I will give him some albumin to see if that can help. He is still having shortness of breath. 2. Generalized weakness. Continue physical therapy and occupational therapy. This patient is 88 years old, and he seems to be declining. 3. Adult failure to thrive, aware. Continue physical therapy. Continue with his diet. Hopefully, we are going to be able to discharge him to a rehab center if he gets better. 4. Shortness of breath as per #1. 5. Hypertension. Blood pressure has been more stable in the 110s and 120s. 6. Constipation, resolved. Continue with same management. 7. Anemia, stable, likely a combination of chronic inflammatory disease and iron deficiency. We are replacing his folate and we replaced already his iron. 8. Hypoalbuminemia. I will replace the albumin. cc: Edmundo Bernstein MD
[2018-09-28] MEDS: D5 1/2 NS 1,000 ML IV SCH (21:15)
[2018-09-28] MEDS: FOLIC ACID 1 MG in NS 50 ML IV SCH (22:00)
[2018-09-29] MEDS: ROCEPHIN 1 GM in NS 50 ML IV SCH (00:45)
[2018-09-29] MEDS: DUONEB (A & A) INH SCH ×6 (04:03→22:19)
[2018-09-29 07:41] LABS: BASO# 0.02 X1000 (0.0-0.2); BASO% 0.1 % (0.0-0.8); EOS# 0.37 X1000 (0.0-0.7); EOS% 2.6 % (0.0-10.0); HEMATOCRIT 29.4 % (42.0-52.0); HEMOGLOBIN 9.5 g/dL (14.0-18.0); IMM GRAN# 0.24 X1000 (0.0-0.04); IMM GRAN% 1.7 % (0.0-0.5); LYMPH# 1.28 X1000 (1.2-3.4); LYMPH% 9.1 % (20.5-51.1); MCH 27.7 PG (27-31); MCHC 32.3 g/dL (33-37); MCV 85.7 FL (81-99); MONO# 1.03 X1000 (0.11-0.59); MONO% 7.3 % (1.7-9.3); NEUT# 11.16 X1000 (1.4-6.5); NEUT% 79.2 % (42.2-75.2); PLT 285 X1000 (130-400); RBC 3.43 XMIL (4.7-6.1); RDW 14.1 % (11.5-14.5)
--- NOTE | 2018-09-29 07:54 | Diag Imaging Result Doc PS360 ---
EXAM: CHEST-PORTABLE INDICATION: dyspnea TECHNIQUE: One view COMPARISON: 09/28/2018 FINDINGS: Low lung volumes and central vascular crowding is unchanged. No new consolidation is identified. Cardiac silhouette is stable. IMPRESSION: Stable chest. Electronically signed by Andrey Ventura 09/29/2018 7:52 AM
[2018-09-29 07:58] LABS: ALBUMIN 2.3 g/dL (3.5-5.0); CALCIUM 7.8 mg/dL (8.8-10.2); CREATININE 1.5 mg/dL (0.7-1.2); POTASSIUM 4.8 mmol/L (3.5-5.1); TOTAL BILIRUBIN 0.2 mg/dL (0.20-1.00); TOTAL PROTEIN 4.7 g/dL (6.3-8.3)
[2018-09-29] MEDS: SINGULAIR PO SCH (09:08)
[2018-09-29] MEDS: THERA M PLUS PO SCH (09:08)
[2018-09-29] MEDS: LACTULOSE PO SCH (09:08)
[2018-09-29] MEDS: MIRALAX PO SCH (09:08)
[2018-09-29] MEDS: PRILOSEC PO SCH (09:08)
[2018-09-29] MEDS: ZITHROMAX PO SCH (09:19)
[2018-09-29] MEDS ORDERED: NS 1,000 ML IV ONE (12:41)
[2018-09-29] MEDS ORDERED: ALBUMIN 25% IV ONE (14:34)
--- NOTE | 2018-09-29 15:22 | PROGRESS NOTE ---
DATE: 09/29/2018 SUBJECTIVE: Patient has no focal complaints. OBJECTIVE: Vital Signs: Blood pressure is 154/76, heart rate 93, respiratory rate 20, temperature 98.4, 98% on room air. Cardiovascular: Regular rate and rhythm. Pulmonary: Bilateral breath sounds. Clear to auscultation. Gastrointestinal: Soft, nontender, nondistended. Bowel sounds are positive. Extremities: No clubbing or cyanosis. Lymphatic: He has nonpitting edema in his upper arms. LABORATORY DATA: White count 14, hemoglobin and hematocrit 9 and 29, platelets 285,000. Creatinine up to 1.5, BUN at 25, albumin of 2.3. PROBLEM LIST: 1. Bilateral lower lobe pneumonia. He is on Rocephin, azithromycin. I attempted to do some diuresis, which I think is very reasonable and we will continue to see how he does. I do not really feel like he is railing. 2. Weakness. He is still very weak and declining, and his family feels like he is not wanting to eat. He told them last night he wanted to join his who is . He does not want to go to a [facility]. Overall, they are not quite sure what steps to take next. 3. Hypertension, is stable. 4. Anemia, is stable. 5. Severe protein-calorie malnutrition. We will continue supplements as much as possible, but he is really not eating very much at all. DISPOSITION: I had a long talk with one of the daughters. He does not clearly have a terminal diagnosis per se; however, he is just not eating and drinking in he is just not doing very well. He really does not have much help from that standpoint and there is not much resolved there. It is certainly possible he is depressed, but I think he just may be succumbing to multiple issues associated with failure to thrive and family does not and the patient does not want to be aggressive as far as a feeding tube or anything to that effect. So, it may be a consideration, we will get a palliative care consult but also possible outpatient hospice if the family is amenable because they do not want to see him long-term in a [facility] unable to do for himself and his weakness has gotten a bit worse. cc: Yo Mcclain MD
[2018-09-29] MEDS: FOLIC ACID 1 MG in NS 50 ML IV SCH (22:05)
[2018-09-29] MEDS: TYLENOL PO PRN (22:06)
[2018-09-30] MEDS: AMBIEN PO PRN ×2 (00:06→20:11)
[2018-09-30] MEDS: LACTULOSE PO SCH ×3 (01:22→20:09)
[2018-09-30] MEDS: ROCEPHIN 1 GM in NS 50 ML IV SCH ×2 (01:23→23:46)
[2018-09-30] MEDS: DUONEB (A & A) INH SCH ×6 (03:09→23:25)
[2018-09-30 06:31] LABS: BASO# 0.01 X1000 (0.0-0.2); BASO% 0.1 % (0.0-0.8); EOS# 0.33 X1000 (0.0-0.7); EOS% 2.4 % (0.0-10.0); HEMATOCRIT 28.3 % (42.0-52.0); IMM GRAN# 0.17 X1000 (0.0-0.04); IMM GRAN% 1.2 % (0.0-0.5); LYMPH% 8.8 % (20.5-51.1); MCH 27.4 PG (27-31); MCHC 31.8 g/dL (33-37); MONO# 0.95 X1000 (0.11-0.59); MPV 8.6 FL (7.4-10.4); NEUT# 10.99 X1000 (1.4-6.5); NEUT% 80.5 % (42.2-75.2); PLT 281 X1000 (130-400); RBC 3.29 XMIL (4.7-6.1); RDW 14.1 % (11.5-14.5); WBC 13.65 X1000 (4.8-10.8)
[2018-09-30 07:01] LABS: ALBUMIN 2.2 g/dL (3.5-5.0); CALCIUM 7.7 mg/dL (8.8-10.2); CREATININE 1.6 mg/dL (0.7-1.2); POTASSIUM 4.4 mmol/L (3.5-5.1); TOTAL BILIRUBIN 0.3 mg/dL (0.20-1.00); TOTAL PROTEIN 4.5 g/dL (6.3-8.3)
[2018-09-30] MEDS: PRILOSEC PO SCH (07:03)
--- NOTE | 2018-09-30 08:48 | Extremity Venous Study ---
EXAM: Venous U/S Right Arm HISTORY: swelling TECHNIQUE: Right upper extremity venous Doppler ultrasound COMPARISON: None. FINDINGS: There is good flow and compressibility of the veins of the right upper extremity. No thrombus. Normal augmentation. IMPRESSION: No evidence of deep venous thrombosis in the right upper extremity. Electronically signed by Prosper Kimball 09/30/2018 8:45 AM
[2018-09-30] MEDS: SINGULAIR PO SCH (10:33)
[2018-09-30] MEDS: THERA M PLUS PO SCH (10:33)
[2018-09-30] MEDS: MIRALAX PO SCH (10:33)
[2018-09-30] MEDS: FOLIC ACID PO SCH (10:34)
[2018-09-30] MEDS: ZITHROMAX PO SCH (10:38)
--- NOTE | 2018-09-30 12:35 | PROGRESS NOTE ---
DATE: 09/30/2018 SUBJECTIVE: Patient is lying in bed and has been having generalized weakness. OBJECTIVE: Vital Signs: Temperature 98.2 degrees, pulse 84 per minute, respiratory rate 17 per minute, blood pressure 151/70, pulse ox 97% on room air. General: Patient is alert and awake. He does not appear to be in any acute distress, although he does appear to be very weak. Cardiovascular System: First and second heart sounds are audible without any murmurs or gallops. Respiratory System: Bilateral lung air entry is good without any rales or rhonchi. Gastrointestinal: Abdomen is soft and nondistended. It is nontender on palpation and normal bowel sounds are present. DIAGNOSTIC DATA: CBC shows WBC count of 13.65 with hemoglobin of 9 and hematocrit 28.3. In comparison, his hemoglobin and hematocrit were 9.5 and 29.4 yesterday. His white blood cell count has been the same way for the past 4 days. Chemistry showed BUN of 29 and creatinine 1.6, that is almost the same as compared to yesterday's labs. Total albumin is low at 2.2. IMPRESSION: 1. The patient was admitted with bilateral lower lobe pneumonia and has generalized deconditioning and severe protein calorie malnutrition. 2. Hypertension. 3. Anemia that is stable. PLAN: The patient's pneumonia infiltrates appear to have improved. I believe there is no acute infection at this point, and therefore, I am going to discontinue azithromycin IV, but we will continue with ceftriaxone intravenously for now. He is having generalized deconditioning and advanced age associated with severe protein calorie malnutrition. He has depressed appetite and has basically given up. I discussed with his daughter in detail and they have agreed to have a hospice consult to see if that is appropriate for them. We will continue with supportive care and go along with family's decision. cc: Carlotta Pratt MD
--- NOTE | 2018-09-30 13:22 | ECHO REPORT ---
ORDER DATE: 09/26/2018 ECHOCARDIOGRAPHY: MEASUREMENTS: Interventricular septum 1.1, left ventricular posterior wall 1.3, diastolic diameter 3.9, left atrium 3.5, aorta 4. SUMMARY: 1. Technically suboptimal study. Poor acoustic window. 2. Aortic valve leaflets are calcified, not well visualized. Pulmonic valve not well visualized. Mitral valve was normal. Tricuspid valve was normal. There was a trace to mild tricuspid regurgitation. Peak velocity across the tricuspid valve less than 2 m/sec. There is trace mitral regurgitation. Peak velocity across the aortic valve less than 2 m/sec. There is no aortic stenosis or regurgitation by Doppler studies. There is aortic sclerosis. 3. Definity was used to assess left ventricular systolic function. Normal left ventricular cavity size. Mild left ventricular hypertrophy. Estimated ejection fraction of 60% to 65%. 4. There is no pericardial effusion or obvious intracardiac mass or thrombus seen. cc: MD Edmundo Clemons MD
[2018-10-01] MEDS: DUONEB (A & A) INH SCH ×7 (03:26→23:23)
[2018-10-01] MEDS: PRILOSEC PO SCH (06:28)
[2018-10-01] MEDS: SINGULAIR PO SCH (11:28)
[2018-10-01] MEDS: MIRALAX PO SCH (11:28)
[2018-10-01] MEDS: LACTULOSE PO SCH ×3 (11:29→20:09)
[2018-10-01] MEDS: FOLIC ACID PO SCH (11:29)
[2018-10-01] MEDS: THERA M PLUS PO SCH (11:29)
[2018-10-01] MEDS ORDERED: LASIX IV ONE (15:12)
[2018-10-01] MEDS ORDERED: AMBIEN PO PRN ×2 (15:16→15:17)
--- NOTE | 2018-10-01 16:24 | PROGRESS NOTE ---
DATE: 10/01/2018 SUBJECTIVE: Patient sitting on the chair. Patient is hard of hearing. Two daughters at bedside; they report some concern about that. OBJECTIVE: Vital Signs: Temperature 99.4 degrees, heart rate 81, respiratory rate 20, blood pressure 160/60, O2 saturation 97% on 3 L nasal cannula. General Examination: This is an chronically ill-looking, 88-year-old, male, lying in bed in no acute distress. Cardiovascular exam: S1, S2 heard. No murmurs, gallops, or rubs. Regular rate and rhythm. Respiratory exam: Clear bilaterally to auscultation. No work of breathing or using accessory muscles. Abdomen: Soft, a little bit distended, nontender to palpation. Bowel sounds present. No organomegaly. Extremities: No clubbing, cyanosis, or edema. Peripheral pulses present in both legs. Neurological exam: Patient is alert and oriented x3. Moves 4 extremities. LABORATORY DATA: There are no labs from today. ASSESSMENT: 1. Bilateral lower lobe pneumonia. 2. Generalized deconditioning. 3. Severe protein calorie malnutrition. 4. Hypertension. PLAN: At this time, family has decided to take this patient to hospice. Actually, he is getting in a hospice facility in [facility]. So, at this time, we are going to make sure that everything is arranged for him to leave tomorrow. Family expressed his concern about the sleeping. We are going to increase the doses of Ambien to 10 mg I think at night. We will provide 1 dose of Lasix for this swelling of the left hand, and we will provide medications for prostate, in this case tamsulosin because this patient reports having problems with urination. cc: Kayode Gonzales MD
[2018-10-01] MEDS: FLOMAX PO SCH (20:09)
[2018-10-01] MEDS: ROCEPHIN 1 GM in NS 50 ML IV SCH (22:39)
[2018-10-02] MEDS: DUONEB (A & A) INH SCH ×4 (02:44→15:54)
[2018-10-02] MEDS: PRILOSEC PO SCH (06:22)
[2018-10-02 07:02] LABS: HEMATOCRIT 31.3 % (42.0-52.0); HEMOGLOBIN 9.9 g/dL (14.0-18.0); MCHC 31.6 g/dL (33-37); MCV 85.3 FL (81-99); MPV 8.7 FL (7.4-10.4); RBC 3.67 XMIL (4.7-6.1); RDW 14.1 % (11.5-14.5); WBC 15.92 X1000 (4.8-10.8)
[2018-10-02 07:17] LABS: CREATININE 2.2 mg/dL (0.7-1.2); POTASSIUM 4.4 mmol/L (3.5-5.1)
[2018-10-02 07:39] VITALS: BP 135/66
--- NOTE | 2018-10-02 12:32 | DISCHARGE SUMMARY ---
ADMISSION DATE: 09/23/2018 DISCHARGE DATE: 10/02/2018 PRIMARY CARE PHYSICIAN: Dr. Kwame Oconnell. DIAGNOSES: 1. Adult failure to thrive. 2. Bilateral lower lobe pneumonia. 3. General deconditioning. 4. Severe protein calorie malnutrition. 5. Hypertension. 6. Anemia, likely a mixture of chronic inflammation and iron deficiency. DIAGNOSTICS: 1. 09/23/2018 chest x-ray revealed lungs well expanded. Heart not enlarged. Vessels are not distended. There are no infiltrates, no pleural effusions. 2. CT of the chest with contrast with trace pleural fluid. Heart is borderline, mildly prominent. No aortic aneurysm or dissection. No enlarged lymph nodes. No consolidation. There is basilar atelectasis. No bronchiectasis. Mild bronchial wall thickening in the lower lobes. 3. CT of the abdomen and pelvis with p.o. and IV contrast. The appendix is not enlarged. There is no evidence of free fluid. There is a fat-containing right inguinal hernia. There is some spondylotic change in the lumbar spine. No evidence of acute bony disease present. 4. Echocardiogram revealed EF of 60% to 65% with mild left ventricular hypertrophy. Aortic valve leaflets are calcified. Pulmonic valve was not well visualized. Mitral valve was normal. Tricuspid valve normal. There was [id number] tricuspid regurgitation. There is no aortic stenosis or regurgitation by Doppler studies. There is aortic sclerosis. There is no pericardial effusion or obvious intracardiac mass or thrombus seen. 5. Right upper extremity venous Doppler ultrasound reveals no evidence of deep vein thrombosis in the right upper extremity. 6. 09/29/2018, repeat chest x-ray reveals low lung volumes and central vascular crowding, unchanged. No new consolidation is identified. Cardiac silhouette is stable. 7. Microbiology: Blood cultures x2 revealed no growth after 5 days. 8. Urine culture revealed no growth. HOSPITAL COURSE: Mr. Joyce presented to the emergency room from his primary care physician's office for weakness and failure to thrive, with a reported 10-15 pounds weight loss in the prior 2 weeks. He was found to have bilateral lower lobe pneumonia, for which he was treated with Rocephin and azithromycin antibiotic coverage, and p.r.n. oxygen. Thankfully, he has improved. He was found to be anemic, which was felt most likely a combination of chronic inflammation and iron deficiency, and we have replaced folate and iron, which will be continued. He was evaluated by physical therapy and OT. He does feel that he has regained a little of his strength. During the hospitalization, the patient requested to be a DNR level 1 and of course, we will follow his wishes. The patient's 2 daughters decided that the patient would be discharged to hospice. A bed was found in [facility]. [facility] has found a bed and thankfully, he is ready for discharge today. PHYSICAL EXAMINATION: Discharge vital signs: Blood pressure is 135/66 with a heart rate of 79, respirations are 18 to 20, temperature is 98.5 degrees, with room air saturations 93% to 97%. Cardiovascular: Regular rate and rhythm. S1 and S2 appreciated. Pulmonary: Breath sounds are clear with no increased work of breathing noted. At this time, he is sitting up in a chair. Gastrointestinal: Abdomen is soft, nontender to palpation with bowel sounds in all 4 quadrants. Neurologic: He is alert and oriented x3. DISCHARGE MEDICATIONS: Ambien 10 mg p.o. at bedtime, Flomax 0.4 mg p.o. b.i.d., MiraLAX 17 g p.o. daily, Lasix 40 mg p.o. daily, omeprazole 20 mg p.o. daily, Singulair 10 mg p.o. daily. DISPOSITION: The patient is being discharged in transfer to an extended care facility under the care of Hospice. TIME SPENT: This is a greater than 30 minute discharge. Dictated by VCIKY Butt for Kayode Gonzales MD This chart was documented by, VICKY Butt and accurately reflects the services performed, treatment plan and medical decisions as attested by the providers signature Kayode Gonzales MD. cc: VICKY Butt MD Alan Walker, MD
[2018-10-02] MEDS: SINGULAIR PO SCH (14:57)
[2018-10-02] MEDS: FLOMAX PO SCH (14:57)
[2018-10-02] MEDS: THERA M PLUS PO SCH (14:57)
[2018-10-02] MEDS: FOLIC ACID PO SCH (15:05)
[2018-10-02] MEDS: MIRALAX PO SCH (15:05)
[2018-10-02] MEDS: LACTULOSE PO SCH (15:06)
== END 2018-10-02 17:42 | DRG 193 ==
LOC: P.DIRADM 09:09 → SUATTDRO 09:09 → P.MEDSURG 09:42
PROVIDERS: ATTEND Internal Medicine
CPT/HCPCS: 71010; 71020; 71045; 71046; 71260; 71275; 74177; 80048; 80053; 81001; 82270; 82378; 82550; 82607; 82728; 82746; 82805; 83540; 83550; 83605; 83735; 83880; 84466; 84484; 85025; 85027; 85045; 85379; 85610; 85651; 85730; 86038; 86039; 86140; 87040; 87088; 87275; 87276; 87804; 93005; 93306; 93970; 93971; 94640; 94761; 94799; 97163; 97165; 97530; 97535; 99284; A9270; C8929; J0456; J0696; J1756; J1940; J7030; P9047; Q9957; Q9967